=== PATIENT | female | born 1950 | race Caucasian/White ===

== ENCOUNTER 2019-02-15 09:58 | Day surgery (SDC) | payer BC ==
[~2019-02-15] VITALS: Ht 172.7 cm; Wt 78.7 kg
[~2019-02-15 09:58] MED LIST: CRUTCH2 USE; HYDACE5325 PO; RXOXYACE PO
[2019-02-15] MEDS ORDERED: KRILL OIL500 MG PO (10:16)
[2019-02-15] MEDS ORDERED: Vitamin D2000 UNIT PO (10:16)
[2019-02-15] MEDS ORDERED: CALCIUM 600 +1 EA11 PO (10:16)
== END 2019-02-15 12:32 | disposition home or self-care (01) ==
LOC: ORSCSDS 09:58
PROVIDERS: Internal Medicine Gastroenterology
PROC: 0DBN8ZX Excision of Sigmoid Colon, Via Natural or Artificial Opening Endoscopic, Diagnostic (ICD-10-PCS; principal; 2019-02-15 11:30)
PROC: 0DBL8ZX Excision of Transverse Colon, Via Natural or Artificial Opening Endoscopic, Diagnostic (ICD-10-PCS; principal; 2019-02-15 11:30)
DX: Z86.010 Personal history of colon polyps (principal); D12.3 Benign neoplasm of transverse colon; D12.5 Benign neoplasm of sigmoid colon; K57.30 Diverticulosis of large intestine without perforation or abscess without bleeding; K64.8 Other hemorrhoids; E78.5 Hyperlipidemia, unspecified; F41.9 Anxiety disorder, unspecified; E88.81 Metabolic syndrome and other insulin resistance; F17.210 Nicotine dependence, cigarettes, uncomplicated
CPT/HCPCS: 88305; J2405; J2704; J7120

== ENCOUNTER 2020-03-11 06:53 | Day surgery (SDC) | payer BC ==
[~2020-03-11] VITALS: Ht 172.7 cm; Wt 77.6 kg
[~2020-03-11 06:53] MED LIST changes: +CALCIUM 600 +1 EA11 PO; +GABA100; +KRILL OIL500 MG PO; +LIDO700A20 TOP; +Vitamin D2000 UNIT PO
== END 2020-03-11 09:06 | disposition home or self-care (01) ==
LOC: ORSCSDS 06:53
PROVIDERS: Internal Medicine Gastroenterology
PROC: 0DBN8ZX Excision of Sigmoid Colon, Via Natural or Artificial Opening Endoscopic, Diagnostic (ICD-10-PCS; principal; 2020-03-11 08:00)
PROC: 0DBL8ZX Excision of Transverse Colon, Via Natural or Artificial Opening Endoscopic, Diagnostic (ICD-10-PCS; principal; 2020-03-11 08:00)
DX: Z12.11 Encounter for screening for malignant neoplasm of colon (principal); D12.3 Benign neoplasm of transverse colon; K63.5 Polyp of colon; K57.30 Diverticulosis of large intestine without perforation or abscess without bleeding; K64.4 Residual hemorrhoidal skin tags; E78.5 Hyperlipidemia, unspecified; I10 Essential (primary) hypertension; F17.210 Nicotine dependence, cigarettes, uncomplicated
CPT/HCPCS: 88305; J0330; J0461; J2405; J2704; J7120

== ENCOUNTER 2020-10-13 11:09 | Emergency (ER) | payer MEDICARE, BC ==
[~2020-10-13] VITALS: Ht 170.2 cm; Wt 83.9 kg
[2020-10-13] MEDS ORDERED: Cleocin HCl300 MG PO (14:18)
== END 2020-10-13 15:00 | disposition home or self-care (01) ==
LOC: ER 11:09
DX: S01.412A Laceration without foreign body of left cheek and temporomandibular area, initial encounter (principal); F17.200 Nicotine dependence, unspecified, uncomplicated; Z88.0 Allergy status to penicillin
CPT/HCPCS: 12013; 70450; 70486; 73120; 73590; 99284-25; A9270-GY

== ENCOUNTER 2020-10-21 15:06 | Emergency (ER) | payer OTHER, BC ==
[~2020-10-21] VITALS: Ht 172.7 cm; Wt 77.1 kg
[~2020-10-21 15:06] MED LIST changes: +Cleocin HCl300 MG PO
== END 2020-10-21 16:10 | disposition home or self-care (01) ==
LOC: ER 15:06
DX: S01.112D Laceration without foreign body of left eyelid and periocular area, subsequent encounter (principal); S01.511D Laceration without foreign body of lip, subsequent encounter; Z88.0 Allergy status to penicillin; Z91.09 Other allergy status, other than to drugs and biological substances; F17.200 Nicotine dependence, unspecified, uncomplicated; X58.XXXD Exposure to other specified factors, subsequent encounter

== ENCOUNTER 2020-10-27 13:55 | Emergency (ER) | payer OTHER, BC ==
[~2020-10-27] VITALS: Ht 170.2 cm; Wt 83.9 kg
[2020-10-27 15:38] LABS: BASOPHILS ABSOLUTE AUTO 0.03 K/mm3 (0.00-0.23); BASOPHILS PERCENT AUTO 0 % (0-2); EOSINOPHILS ABSOLUTE AUTO 0.04 K/mm3 (0.00-0.68); EOSINOPHILS PERCENT AUTO 0 % (0-6); Hematocrit 46.4 % (33.0-51.0); Hemoglobin 14.9 g/dL (11.5-16.0); IMMATURE GRAN ABSOLUTE AUTO 0.03 K/mm3 (0.00-0.10); IMMATURE GRAN PERCENT AUTO 0 % (0-1); LYMPHOCYTES PERCENT AUTO 30 % (21-46); MONOCYTES ABSOLUTE AUTO 0.68 K/mm3 (0.16-1.47); MONOCYTES PERCENT AUTO 7 % (4-13); Mean Corpuscular HGB 31.8 pg (26.0-34.0); Mean Corpuscular HGB Conc 32.1 g/dL (31.5-36.5); Mean Corpuscular Volume 99 fL (80-100); Mean Platelet Volume 9.9 fL (9.1-12.4); NEUTROPHILS ABSOLUTE AUTO 6.18 K/mm3 (1.96-9.15); NEUTROPHILS PERCENT AUTO 62 % (41-73); Platelet Count 370 K/mm3 (150-400); RDW Coefficient Variation 11.9 % (11.7-14.2); RDW Standard Deviation 43.4 fL (35.1-46.3); Red Blood Cell Count 4.68 M/mm3 (3.80-5.20); White Blood Cell Count 9.96 K/mm3 (4.00-11.30)
[2020-10-27 16:03] LABS: Alanine Aminotransfer (ALT/SGP 37 U/L (12-78); Albumin, Blood 4.3 g/dL (3.4-5.0); Albumin/Globulin Ratio 1.1 (0.8-1.8); Alk Phos 81 U/L (50-136); Anion Gap 4 mmol/L (6-16); Aspartate Aminotrans (AST/SGOT 17 U/L (12-37); Bilirubin, Total 0.7 mg/dL (0.1-1.0); Blood Urea Nitrogen 17 mg/dL (8-24); Bun/Creatinine Ratio 22.4 (12.0-20.0); CO2, Blood 31 mmol/L (21-32); Calcium, Blood 9.5 mg/dL (8.5-10.1); Chloride, Blood 101 mmol/L (98-108); Creatinine, Blood 0.76 mg/dL (0.40-1.00); Glomerular Filtration Rate >60 (60-); Glucose, Blood 103 mg/dL (70-99); Potassium, Blood 4.2 mmol/L (3.5-5.5); Sodium, Blood 136 mmol/L (136-145); Total Protein, Blood 8.3 g/dL (6.4-8.2)
[2020-10-27] MEDS ORDERED: Bactrim Ds Tab1 EACH PO (17:22)
[2020-10-27] MEDS ORDERED: CEFD300 PO (17:22)
== END 2020-10-27 17:44 | disposition home or self-care (01) ==
LOC: ER 13:55
PROVIDERS: Physician Assistant
DX: L03.213 Periorbital cellulitis (principal); F17.200 Nicotine dependence, unspecified, uncomplicated; Z88.0 Allergy status to penicillin; Z91.09 Other allergy status, other than to drugs and biological substances
CPT/HCPCS: 36415; 70481; 80053; 81000; 83605; 85025; 87040; 99284-25; A9270; Q9967

== ENCOUNTER 2021-03-26 07:15 | Day surgery (SDC) | payer OTHER ==
[~2021-03-26] VITALS: Ht 172.7 cm; Wt 98.7 kg
[~2021-03-26 07:15] MED LIST changes: +Bactrim Ds Tab1 EACH PO; +CEFD300 PO
--- NOTE | 2021-03-26 07:50 | NUR ---
03/26/21 0750 Nita Pina CALL LIGHT WITHIN REACH
--- NOTE | 2021-03-26 10:15 | NUR ---
03/26/21 1015 MANA DIAZ PAIN 5-6 AT PRESENT
== END 2021-03-26 10:25 | disposition home or self-care (01) ==
LOC: ORSCSDS 07:15
PROVIDERS: Orthopaedic Surgery
PROC: 0LX80ZZ Transfer Left Hand Tendon, Open Approach (ICD-10-PCS; principal; 2021-03-26 08:15)
PROC: 0RQT0ZZ Repair Left Carpometacarpal Joint, Open Approach (ICD-10-PCS; principal; 2021-03-26 08:15)
DX: M18.12 Unilateral primary osteoarthritis of first carpometacarpal joint, left hand (principal); Z87.891 Personal history of nicotine dependence; G62.9 Polyneuropathy, unspecified
CPT/HCPCS: A9270; C1713; J1100; J1885; J2250; J2405; J2704; J2795; J3010; J7120

== ENCOUNTER 2021-04-14 11:47 | Day surgery (SDC) | payer OTHER ==
[~2021-04-14] VITALS: Ht 172.7 cm; Wt 80.9 kg
== END 2021-04-14 16:20 | disposition home or self-care (01) ==
LOC: ORSCSDS 11:47
PROVIDERS: Internal Medicine Gastroenterology
PROC: 0DBN8ZX Excision of Sigmoid Colon, Via Natural or Artificial Opening Endoscopic, Diagnostic (ICD-10-PCS; principal; 2021-04-14 13:30)
PROC: 0DB68ZX Excision of Stomach, Via Natural or Artificial Opening Endoscopic, Diagnostic (ICD-10-PCS; principal; 2021-04-14 13:30)
DX: Z12.11 Encounter for screening for malignant neoplasm of colon (principal); Z86.010 Personal history of colon polyps; K21.9 Gastro-esophageal reflux disease without esophagitis; D12.5 Benign neoplasm of sigmoid colon; K31.9 Disease of stomach and duodenum, unspecified
CPT/HCPCS: J0461; J2405; J2704; J7120